=== PATIENT | female | born 1950 | race Caucasian/White ===

== ENCOUNTER 2022-03-18 16:13 | Outpatient (CLI) | payer SELFPAY ==
--- NOTE | 2022-03-18 | DI.RAD_ITS ---
Exam(s) XR HIP RT COMPLETE AP PELVIS EXAM: XR HIP RT COMPLETE AP PELVIS CLINICAL HISTORY: RT HIP PAIN M25.551 ? OSTEOARTHRITIS, NO TRAUMA. TECHNIQUE: 2D digital imaging was performed. COMPARISON: No exams were available for comparison FINDINGS: 3 views No evidence of pelvic nor hip fracture. However, there are advanced osteoarthritic degenerative keys ges in both hips, this more prominent on the right hip where there is [id number] narrowing and tono inal osteophytes. Advanced degenerative change also noted in the left hip but slightly less than bon e-on-bone which is evident on the right side. There also marginal osteophytes in both femoral heads sacroiliac joints unremarkable. IMPRESSION: Advanced degenerative changes in both hips, right more than left. DATA REPOSITORY: RADIATION DOSE DELIVERED:
== END 2022-03-18 16:33 ==
PROVIDERS: Visit Provider Physician Assistant Medical
DX: M25.551 Pain in right hip (principal); M16.11 Unilateral primary osteoarthritis, right hip
CPT/HCPCS: 73502